=== PATIENT | female | born 1970 | race Caucasian/White ===

== ENCOUNTER 2022-03-20 11:37 | Outpatient (CLI) | payer BC, SELFPAY ==
[2022-03-20 14:15] LABS: Chloride* 104 mmol/L (96-114); Potassium* 3.9 mmol/L (3.6-5.1); Sodium* 139 mmol/L (135-149)
[2022-03-20 14:18] LABS: Creatinine* 0.7 mg/dL (0.5-1.5); Estimated Glomerular Filt Rate 104 ml/min
[2022-03-20 14:19] LABS: Blood Urea Nitrogen* 14 mg/dL (7-30); Calcium* 9.5 mg/dL (8.4-10.6); Carbon Dioxide* 28 mmol/L (20-32); Glucose* 113 mg/dL (60-115)
== END 2022-03-20 11:38 | disposition home or self-care (01) ==
LOC: FBOREF 11:38
PROVIDERS: PCP Family Medicine; Visit Provider Family Medicine
DX: U07.1 COVID-19 (principal)
CPT/HCPCS: 80048

== ENCOUNTER 2024-10-26 11:36 | Outpatient (CLI) | payer BC, SELFPAY | END 2024-10-26 11:37 | disposition home or self-care (01) | PROVIDERS: PCP Family Medicine; Visit Provider Family Medicine | DX: Z98.84 Bariatric surgery status (principal); Z13.220 Encounter for screening for lipoid disorders; Z13.21 Encounter for screening for nutritional disorder; Z13.0 Encounter for screening for diseases of the blood and blood-forming organs and certain disorders involving the immune mechanism; Z13.29 Encounter for screening for other suspected endocrine disorder | CPT/HCPCS: 80061; 82306; 82607; 82728; 84443 ==